=== PATIENT | male | born 1960 | race Caucasian/White ===

== ENCOUNTER 2017-10-21 07:35 | Day surgery (SDC) | payer BC ==
[~2017-10-21] VITALS: Ht 182.9 cm; Wt 101.5 kg
[2017-10-21] VITALS (9 sets, daily range): BP systolic 143–151; BP diastolic 74–86
[~2017-10-21 07:35] MED LIST: ALLO100T PO; DESV50TA PO; ESOMEPRAZOLE PO; FURO-150 PO; MULT-1085 PO; NADO40TA PO; PENT400T12 PO; POTA10CA44 PO; SPIR100T3 PO; ZINC50TA37 PO
[2017-10-21] MEDS ORDERED: LIDOcaine 1% 30ml preserv. free vial SQ STA (08:05)
[2017-10-21] MEDS ORDERED: normal saline 1000ml 1,000 ML IV PRN (09:10)
[2017-10-21] MEDS ORDERED: albumin (human) 25% 100 ML IV solution IV PRN (09:10)
[2017-10-21 11:45] LABS: LDH,BODY FLUID 18 U/L
[2017-10-21 11:56] LABS: LYMPHOCYTES,BODY FLUID 70 %; MONOCYTES,BODY FLUID 25 %; NEUTROPHILS,BODY FLUID 5 %
[2017-10-21 12:00] LABS: TOTAL PROTEIN,BODY FLUID < 2.0 G/DL
[2017-10-21 12:13] LABS: BFAPPEAR CLOUDY
[2017-10-21 12:14] LABS: BF WBC COUNT 115 /CU MM (0-1000); BFCOLOR YELLOW; BFVOLUME 46 ML
[2017-10-21 12:15] LABS: BF MESOTHELIAL CELLS FEW; BF RBC COUNT 660 /CU MM
[2017-10-21] MEDS ORDERED: RIFA550T PO (14:28)
[2017-10-21] MEDS ORDERED: LACT10SO PO (14:28)
[2017-10-21] MEDS ORDERED: PANT-47 PO (14:28)
== END 2017-10-21 10:55 | disposition home or self-care (01) ==
LOC: SSTAY O 07:35
PROVIDERS: ATTEND Radiology Diagnostic Radiology
DX: K70.31 Alcoholic cirrhosis of liver with ascites (principal); E11.9 Type 2 diabetes mellitus without complications; I10 Essential (primary) hypertension; K21.9 Gastro-esophageal reflux disease without esophagitis; Z79.4 Long term (current) use of insulin; Z87.891 Personal history of nicotine dependence; Z72.89 Other problems related to lifestyle; Z79.899 Other long term (current) drug therapy; Z98.890 Other specified postprocedural states
CPT/HCPCS: 49083; 82948; 83615; 84157; 87070; 89051; A6257; J3490; J7030; P9047

== ENCOUNTER 2017-11-03 07:49 | Day surgery (SDC) | payer BC ==
[2017-11-03] VITALS (10 sets, daily range): BP systolic 124–145; BP diastolic 60–80
[~2017-11-03] VITALS: Ht 182.9 cm; Wt 103.4 kg
[~2017-11-03 07:49] MED LIST changes: -DESV50TA PO; -ESOMEPRAZOLE PO; -FURO-150 PO; +LACT10SO PO; -NADO40TA PO; +PANT-47 PO; -PENT400T12 PO; +RIFA550T PO
[2017-11-03] MEDS ORDERED: normal saline 1000ml 1,000 ML IV PRN (08:20)
[2017-11-03] MEDS ORDERED: INSU100V9 SQ (08:27)
[2017-11-03] MEDS ORDERED: GABA-532 PO (08:27)
[2017-11-03] MEDS ORDERED: INSU100C10 SQ (08:27)
[2017-11-03] MEDS ORDERED: LIDOcaine 1% 30ml preserv. free vial IJ STA (08:31)
[2017-11-03] MEDS: albumin (human) 25% 100 ML IV solution IV PRN ×2 (09:31→09:36)
[2017-11-03 10:49] LABS: LDH,BODY FLUID 38 U/L
[2017-11-03 11:15] LABS: TOTAL PROTEIN,BODY FLUID < 2.0 G/DL
[2017-11-03 11:50] LABS: LYMPHOCYTES,BODY FLUID 61 %; MONOCYTES,BODY FLUID 39 %
[2017-11-03 11:51] LABS: BF MESOTHELIAL CELLS FEW; BF RBC COUNT 435 /CU MM; BF WBC COUNT 155 /CU MM (0-1000); BFAPPEAR CLOUDY; BFCOLOR YELLOW; BFVOLUME 50 ML; NEUTROPHILS,BODY FLUID 0 %
== END 2017-11-03 10:35 | disposition home or self-care (01) ==
LOC: SSTAY O 07:49
PROVIDERS: ATTEND Radiology Diagnostic Radiology
DX: K70.31 Alcoholic cirrhosis of liver with ascites (principal); I10 Essential (primary) hypertension; E11.9 Type 2 diabetes mellitus without complications; K21.9 Gastro-esophageal reflux disease without esophagitis; Z72.89 Other problems related to lifestyle; Z79.4 Long term (current) use of insulin; Z87.891 Personal history of nicotine dependence; Z79.899 Other long term (current) drug therapy; Z98.890 Other specified postprocedural states
CPT/HCPCS: 49083; 83615; 84157; 87070; 87077; 89051; A6257; J7030; P9047

== ENCOUNTER 2018-03-25 07:23 | Day surgery (SDC) | payer BC ==
[~2018-03-25] VITALS: Ht 182.9 cm; Wt 96.1 kg
[~2018-03-25 07:23] MED LIST changes: +GABA-532 PO; +INSU100C10 SQ; +INSU100V9 SQ; -SPIR100T3 PO; +SPIR100T5 PO
[2018-03-25 07:41] VITALS: BP 118/63
[2018-03-25] MEDS ORDERED: LIPA1CAP18 PO (07:55)
[2018-03-25] MEDS ORDERED: BISA-155 PO (07:55)
[2018-03-25] MEDS ORDERED: FURO40TA4 PO ×2 (07:55)
[2018-03-25] MEDS ORDERED: LYR75C PO (07:55)
[2018-03-25] MEDS ORDERED: OXYC5CAP19 PO (07:56)
[2018-03-25] MEDS ORDERED: LIDOcaine 1% (10mg/ml)w/preservative injection 20ml MDV SQ ONE (08:05)
[2018-03-25] MEDS ORDERED: normal saline 1000ml 1,000 ML IV PRN (08:05)
[2018-03-25] MEDS ORDERED: albumin (human) 25% 100 ML IV solution IV PRN (08:05)
== END 2018-03-25 08:45 | disposition home or self-care (01) ==
LOC: SSTAY O 07:23
PROVIDERS: ATTEND Radiology Diagnostic Radiology
DX: R14.0 Abdominal distension (gaseous) (principal); I10 Essential (primary) hypertension; K21.9 Gastro-esophageal reflux disease without esophagitis; F10.10 Alcohol abuse, uncomplicated; E11.9 Type 2 diabetes mellitus without complications; Z79.891 Long term (current) use of opiate analgesic; Z79.4 Long term (current) use of insulin; Z87.891 Personal history of nicotine dependence; Z98.890 Other specified postprocedural states; Z79.899 Other long term (current) drug therapy; Z81.1 Family history of alcohol abuse and dependence; Z81.8 Family history of other mental and behavioral disorders; Z80.0 Family history of malignant neoplasm of digestive organs; Z80.42 Family history of malignant neoplasm of prostate
CPT/HCPCS: 76705; J2001; J7030; A6257